=== PATIENT | male | born 1975 | race Two or more races ===

== ENCOUNTER 2024-01-17 08:57 | Outpatient (OUT) | payer BC, SELFPAY ==
--- NOTE | 2024-01-17 09:11 | ECG_ITS ---
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
--- NOTE | 2024-01-17 09:41 | PM.PRESUREVA ---
History of Present Illness History of Present Illness Chief complaint: inferior turbinate hypertrophy Narrative: Patient presents for preadmission testing. The patient reports a long history of sinus issues, particularly nasal congestion, the patient states he had a previous procedure on his nose to remove scar tissue. He states he has not had antibiotic treatment for bacterial sinusitis, but just struggles with congestion despite use of nasal sprays and decongestants. He denies epistaxis, fever, sore throat, headache, hearing loss, or any other complaints. Review of Systems ROS Narrative REVIEW OF SYSTEMS: Negative except as stated in HPI, ten or more systems reviewed. Constitutional: No fever, chills, weakness ENT: No sore throat or epistaxis Cardiovascular: No edema, chest pain, palpitations, or activity intolerance Respiratory: No shortness of breath, cough, or wheezing Musculoskeletal: No joint pain or swelling Gastrointestinal: No abdominal pain, constipation, diarrhea, or vomiting Genitourinary: No dysuria or hematuria Neurological: No numbness, tingling, weakness, or headache Psychiatric: No mood changes PFSH PFSH Medical History (Updated 01/17/24 @ 09:29 by Sophia Jain NP) Esophageal stricture ?K22.2 - Esophageal obstruction (ICD-10) Arthritis ?M19.90 - Unspecified osteoarthritis, unspecified site (ICD-10) GERD (gastroesophageal reflux disease) ?K21.9 - Gastro-esophageal reflux disease without esophagitis (ICD-10) Graves disease ?E05.00 - Thyrotoxicosis with diffuse goiter without thyrotoxic crisis or storm (ICD-10) Nasal turbinate hypertrophy ?J34.3 - Hypertrophy of nasal turbinates (ICD-10) History of esophageal dilatation ?Z98.890 - Other specified postprocedural states (ICD-10) Surgical History (Updated 01/17/24 @ 09:28 by Sophia Jain NP) H/O hand surgery ?Z98.890 - Other specified postprocedural states (ICD-10) History of nasal septoplasty ?Z98.890 - Other specified postprocedural states (ICD-10) Family History (Updated 01/17/24 @ 09:28 by Sophia Jain NP) Other Cancer Family history of diabetes mellitus Social History (Updated 01/17/24 @ 09:22 by Sophia Jain NP) Within the past year, how often did you have a drink containing alcohol: monthly or less Smoking status: Never smoker Non-prescribed substance use: denies use Previous occupational history: [employer] Highest level of school completed/degree received: high school graduate Meds Home Medications and Allergies Home Medications ?Medication ?Instructions ?Recorded ?Confirmed ?Type levothyroxine 50 mcg tablet 25 mcg PO BID 01/17/24 01/17/24 History omeprazole 40 mg capsule,delayed 40 mg PO DAILY PRN heartburn 01/17/24 01/17/24 History release thyroid (pork) 60 mg tablet ([employer] 60 mg PO BID 01/17/24 01/17/24 History Thyroid) Allergies Allergy/AdvReac Type Severity Reaction Status Date / Time No Known Drug Allergies Allergy Verified 01/17/24 09:20 Exam Narrative Exam Narrative: Constitutional: Awake, alert, comfortable, well-appearing, nontoxic, interactive, vital signs as charted Head: Normocephalic, atraumatic Eyes: Conjunctiva and lids normal to inspection, pupils normal ENT: Tympanic membranes pearly sandra, nonerythematous, noninjected, bilateral nasal turbinate hypertrophy, posterior oropharynx clear, oral mucosa moist Neck: Supple, normal appearance, normal range of motion, no meningeal signs, no lymphadenopathy Respiratory: No respiratory distress, breath sounds clear Cardiovascular: Regular rate and rhythm, strong and regular heart tones Musculoskeletal: Normal gait, no swelling or edema Skin: No rashes or induration, no lesions, only visible skin inspected Neuro: No neurological deficits, normal sensation Psychiatric: Oriented ?3, normal affect Assessment and Plan Assessment and Plan (1) Nasal turbinate hypertrophy: Plan Bilateral inferior turbinate submucosal resection scheduled with Dr. Jovel January 29, 2024.
[2024-01-17 09:57] LABS: Basophils Percent Auto 0.5 % (0.2-2.0); Eosinophils Absolute Auto 0.1 10^3/uL (0.0-0.7); Eosinophils Percent Auto 1.1 % (0.9-7.0); Hematocrit 44.4 % (42.0-54.0); Hemoglobin 14.7 g/dL (14.0-18.0); Immature Granulocytes Abs Auto 0.01 10^3/uL (0.00-0.03); Immature Granulocytes Pct Auto 0.2 % (0.0-0.5); Lymphocytes Absolute Auto 1.9 10^3/uL (1.2-3.8); Lymphocytes Percent Auto 30.6 % (20.5-60.0); Mean Corpuscular HGB Conc 33.1 g/dL (29.9-35.2); Mean Corpuscular Hemoglobin 30.8 pg (25.9-34.0); Mean Corpuscular Volume 93.1 fL (80.0-94.0); Mean Platelet Volume 9.7 fL (9.5-13.5); Monocytes Absolute Auto 0.7 10^3/uL (0.3-0.8); Monocytes Percent Auto 10.7 % (1.7-12.0); Neutrophils Absolute Auto 3.5 10^3/uL (1.4-6.5); Neutrophils Percent Auto 56.9 % (43.0-75.0); Platelet Count 236 10^3/uL (150-450); Red Blood Count 4.77 10^6/uL (4.70-6.10); Red Cell Distribution Width 12.7 % (11.0-15.0); White Blood Count 6.2 10^3/uL (4.0-11.0)
[2024-01-17 10:11] LABS: INR 1.01; Partial Thromboplastin Time 29.6 sec (22.3-36.2); Prothrombin Time 10.7 sec (9.0-11.6)
== END 2024-01-17 08:58 | disposition home or self-care (01) ==
LOC: PST 09:03
PROVIDERS: PCP Family Medicine; Visit Provider Otolaryngology
DX: Z01.810 Encounter for preprocedural cardiovascular examination (principal); Z01.812 Encounter for preprocedural laboratory examination; Z01.818 Encounter for other preprocedural examination; J34.3 Hypertrophy of nasal turbinates
CPT/HCPCS: 36415; 85025; 85610; 85730; 93005; G0463

== ENCOUNTER 2024-01-29 09:49 | Day surgery (SDC) | payer BC, SELFPAY ==
[2024-01-17 09:37] VITALS: BP 117/80; PULSE 72; TEMP 36.4; O2SAT 97; BMI 32.0
[2024-01-29] VITALS (12 sets, daily range): BP systolic 118–156; BP diastolic 68–107; PULSE 64–88; TEMP 36.1–36.3; O2SAT 91–98; BMI 32.2
--- OUTSIDE RECORDS SUMMARY | 2024-01-29 10:09 | XMS_ITS | CCD ---
Author Organization [facility] Care Team Providers Care Investigation Lieutenant Name Role Phone Pedro Elmore Unavailable Raquel Villa Unavailable Unavailable Raquel Villa Unavailable Unavailable WILBER CHAU C.N.P.-ER Unavailable Unava ilable Pedro Elmore Primary Care Provider [phone] Pedro Elmore DO Primary Care Provider Pedro Elmore DO Primary Care Provider [phone] Pedro ELMORE Primary Care Physician Pedro Elmore DO Primary Care Provider KATHRINE EVANGELISTA Attending Unavail able KATHRINE EVANGELISTA Admitting Unavail able KATHRINE EVANGELISTA Attending Unavail able KATHRINE EVANGELISTA Admitting Unavail able CHUCKIE LUI Attending Unavailab PEDRO Maravilla Primary Care Unavailable CHUCKIE LUI Admitting Unavailab CHUCKIE Ospina Referring Unavailab PATRICIA Oshea Attending Unavailable PEDRO ELMORE Primary Care Unavailable CHUCKIE LUI EDWARD Admitting Unavailab CHUCKIE Ospina EDWARD Referring Unavailab MARCI Carson Attending Unavailable PEDRO ELMORE Primary Care Unavailable PEDRO ELMORE Primary Care Unavailable RAQUEL VILLA Attending Unavailable PEDRO ELMORE Primary Care Unavailable RAQUEL VILLA Attending Unavailable William Crespo PA-C Unavailable DARRICK CRAWFORD Attending Unavailable YOSSI ALEXANDRE Attending Unavailable DARRICK CRAWFORD Referring Unavailable DARRICK CRAWFORD Attending Unavailable YOSSI ALEXANDRE Attending Unavailable SABRA RAND Attending Unavailable JUSTO MELCHOR Attending Unavailable DARRICK CRAWFORD Referring Unavailable Medications Current Medications Medication Drug Class(es) Dates Sig (Normalized) Sig (Original) eucalyptus-peppermi nt oil Soln (1 source) Start: 04-09-2023 End: 05-09-2023 take 4 drop(s) nasal route four times daily eucalyptus-pepperm int oil Soln Indications: Nasal dryness Instill 4 drops into each nostril 4 (four) times a day . 30 mL 3 04/09/2023 05/09/2023 Active methIMAzole 10 mg oral tablet (6 sources) Thyroid Hormone Synthesis Inhibitor Start: 04-05-2017 methIMAzole (TAPAZOLE) 10 MG tablet Take 1 tablet daily starting 4 days after I-131 treatment. 30 tablet 4 04/05/2017 Active Start: 11-29-2015 take 1 tablet by [facility] every eight hours methimazole 20 mg oral tablet = 1 tab(s), Oral, q8hr, # 270 tab(s), Refills(s) 0 Start Date: 11/29/15 Status: Ordered omeprazole 40 mg delayed release oral capsule (18 sources) Proton Pump Inhibitor Start: 11-15-2023 take 1 capsule by mouth once daily omeprazole (PRILOSEC) 40 MG capsule TAKE 1 CAPSULE BY MOUTH EVERY DAY 30 capsule 3 11/15/2023 Active Start: 03-12-2023 End: 11-15-2023 take 1 capsule by mouth once daily omeprazole (PRILOSEC) 40 MG capsule Take 1 (one) capsule (40 mg total) by mouth daily . 30 capsule 5 03/12/2023 11/15/2023 Discontinued Start: 10-21-2019 End: 01-06-2022 take 1 capsule by mouth once daily omeprazole (PRILOSEC) 40 MG capsule TAKE 1 CAPSULE BY MOUTH EVERY DAY 30 capsule 11 01/06/2022 Active Start: 04-23-2018 take 1 capsule by mo [facility] once daily omeprazole (PRILOSEC) 40 MG capsule Take 1 (one) capsule (40 mg total) by mouth daily . 30 capsule 11 04/23/2018 Active Start: 03-02-2017 take 1 capsule by mo [facility] once daily omeprazole (PRILOSEC) 40 MG capsule Take 40 mg by mouth daily. 3 03/02/2017 Active pantoprazole 40 mg extended release oral tablet (3 sources) Proton Pump Inhibitor Start: 09-02-2015 take 1 tablet by mouth twice daily pantoprazole 40 mg Oral EC Tab 40 mg = 1 tab(s), Oral, BID, # 60 tab(s), Refills(s) 2 Start Date: 09/02/15 Status: Ordered Start: 09-02-2015 take 1 tablet by ermelinda twice daily pantoprazole 40 mg Oral EC Tab 40 mg = 1 tab(s), Oral, BID, # 60 tab(s), Refills(s) 2 Start Date: 09/02/15 Status: Ordered raNITIdine 150 mg oral capsule (11 sources) Histamine-2 Receptor Antagonist Start: 10-21-2019 End: 01-10-2022 take 1 capsule by mouth twice daily ranitidine (ZANTAC) 150 MG capsule Take 1 (one) capsule (150 mg total) by mouth 2 (two) times a day . 180 capsule 3 10/21/2019 01/10/2022 Discontinued (Therapy completed) Start: 04-23-2018 End: 04-23-2019 take 1 capsule by mouth twice daily ranitidine (ZANTAC) 150 MG capsule Take 1 (one) capsule (150 mg total) by mouth 2 (two) times a day . 60 capsule 11 04/23/2018 04/23/2019 Active Start: 03-02-2017 End: 10-16-2017 take 2 tablets by mouth once ranitidine (ZANTAC) 150 M G tablet Take 300 mg by mouth nightly. 3 03/02/2017 10/16/2017 Discontinued thyroid ([facility]) 90 mg oral tablet (3 sources) Start: 03-05-2023 End: 03-04-2024 take 1 tablet by mouth once daily thyroid ([facility] Thyroid) 90 mg tablet Take 1 (one) tablet (90 mg total) by mouth daily . 30 tablet 11 03/05/2023 03/04/2024 Active levothyroxine sodium 0.15 mg oral tablet (15 sources) l-Thyroxi ne Start: 01-17-2023 End: 03-05-2023 take 1 tablet by mouth once daily, then take 0.5 tablet by mouth once levothyroxine (SYNTHROID, LEVOTHROID) 150 MCG tablet Indications: Hypothyroidism, unspecified type TAKE 1 TABLET BY MOUTH DAILY WITH AN EXTRA 1/2 TABLET EVERY SUNDAY 32 tablet 12 01/17/2023 03/05/2023 Discontinued Start: 10-21-2019 End: 01-17-2023 take 1 tablet by mouth once daily, then take 0.5 tablet by mouth once levothyroxine (SYNTHROID, LEVOTHROID) 150 MCG tablet Indications: Hypothyroidism, unspecified type TAKE 1 TABLET BY MOUTH DAILY WITH AN EXTRA 1/2 TABLET EVERY SUNDAY . 32 tablet 12 01/06/2022 01/17/2023 Discontinued Start: 12-20-2017 End: 10-11-2019 take 1 tablet by mouth once daily levothyroxine (SYNTHROID, LEVOTHROID) 150 MCG tablet Indications: Hypothyroidism, unspecified type Take 1 (one) tablet (150 mcg total) by mouth daily . 90 tablet 3 10/11/2018 10/11/2019 Active Start: 10-16-2017 End: 10-16-2018 take 1 tablet by mouth once daily levothyroxine (SYNTHROID, LEVOTHROID) 137 MCG tablet Indications: Postablative hypothyroidism Take 1 (one) tablet (137 mcg total) by mouth daily. 90 tablet 3 10/16/2017 10/16/2018 Active Start: 07-20-2017 End: 07-20-2018 take 1 tablet by mouth once daily levothyroxine (SYNTHROID, LEVOTHROID) 125 MCG tablet Take 1 (one) tablet (125 mcg total) by mouth daily. 30 tablet 11 07/20/2017 10/16/2017 Discontinued Completed/Discontinued Medications Medication Drug Class(es) Dates Sig (Normalized) Sig (Original) liothyronine sodium 0.005 mg oral tablet (1 source) l-Triiodothyroni ne Start: 04-23-2018 End: 10-11-2018 take 1 tablet by mouth once daily liothyronine (CYTOMEL) 5 MCG tablet Indications: Postablative hypothyroidism Take 1 (one) tablet (5 mcg total) by mouth daily . 30 tablet 11 04/23/2018 10/11/2018 Discontinued propranolol hydrochloride 10 mg oral tablet (5 sources) beta-Adrenergic Brody Start: 04-05-2017 End: 10-16-2017 propranolol (INDERAL) 10 MG tablet Take 1 tablet every 6-8 hrs prn palpitations. 30 tablet 0 04/05/2017 10/16/2017 Discontinued zolpidem tartrate 10 mg oral tablet (5 sources) gamma-Aminobutyr ic Acid-ergic Agonist End: 10-16-2017 take 1 tablet by mouth once as needed for sleep zolpidem (AMBIEN) 10 mg tablet Take 10 mg by mouth nightly as needed for sleep. 10/16/2017 Discontinued Problems Active Problems Problem Classification Problem Date Documented Date Episodic/Chronic Complications of surgical procedures or medical care (16 sources) Postablative hypothyroidism; Translations: [Postprocedural hypothyroidism] Onset: 07-20-2017 07-20-2017 Chronic Other ear and sense organ disorders (1 source) Sensorineural hearing loss, bilateral; Translations: [Sensorineural hearing loss, bilateral] 04-09-2023 Chronic Other ear and sense organ disorders (2 sources) Tinnitus, bilateral; Translations: [Tinnitus, bilateral] Onset: 03-05-2023 Episodic Other ear and sense organ disorders (2 sources) Tinnitus, unspecified ear; Translations: [Tinnitus, unspecified ear] Onset: 03-05-2023 Episodic Other upper respiratory disease (3 sources) Hypertrophy of nasal turbinates 12-01-2013 Episodic Other upper respiratory disease (2 sources) Other specified disorders of nose and nasal sinuses; Translations: [Other specified disorders of nose and nasal sinuses] Onset: 04-09-2023 Episodic Other upper respiratory disease (2 sources) Nasal congestion; Translations: [Nasal congestion] Onset: 04-09-2023 Episodic Thyroid disorders (20 sources) Graves' disease; Translations: [Postablative hypothyroidism] Onset: 04-29-2017 04-29-2017 Chronic Past or Other Problems Problem Classification Problem Date Documented Da te Episodic/Chronic Other ear and sense organ disorders (4 sources) Tinnitus; Translations: [Tinnitus, unspecified ear] Onset: 03-05-2023 03-05-2023 Episodic Results Test Name Value Interpretation Reference Range Facility Consultation Noteon 03-05-20 Consultation Note [id number]#1.00C D:127 Normal [facility] CHEMISTRYOrdered By: Tere Gray on 02-27-2023 Free T4 [Mass/Vol] 1.08 ng/dL Normal 0.58 - 1. 64 ng/dL FT Remisol TSH Qn 3.29 m[IU]/L Normal 0.34 - 5.60 mcIU/mL [facility] Remisol Consent for Treatmenton 02-03 Consent for Treatment [id number]#1.00C D:127 Normal [facility] Free T4on 02-27-2023 Free T4 [Mass/Vol] 1.08 ng/dL Normal 0.58-1.64 [facility] Comment on above: Performed By: #### 2 [id number] #### [facility] [address] [place] [address] Physician Orderon 02-27-2023 Physician Order [id number]#1.00C D:127 Normal [facility] TSHon 02-27-2023 TSH Qn 3.29 m[IU]/L Normal 0.34-5.60 [facility] Comment on above: Performed By: #### 2 [id number], [id number] #### [facility] [address] [place] [address] In office Testingon 08-18-19 23 In office Testing [id number]#1.00C D:127 Normal [facility] Coding Summary.on 06-14-2022 Coding Summary. CD:[id number] Gh0 bWw+PGhlYWQ+JF9DBOPmV25 dzXGohT4AA6wELU8BOXIUZZ WSMR8CEP2udDZ4JGwqY7Usj iAv CzaqwITwSB91LIy8VYB3wRq yHVhpgX6haVFeO9w5DiXzVS 37oQ55KDyaBORpBkG7QeRbx jsgbWFy I5bfJdMtbEJtRyy+PHRhYmx lIHdpZHRoPScxMDAlJyBzdH faGE7fVc5vBHQbQGWekCdhe HNlOiBj k2pvWKUjLYzmAX8wnZipR1H ymGR3VEQqk4k8Rz56kCL+PH WnUJX7kZuuBVxyg969RlVky 3myKFL9 iGPbZZtqQBM1Z98qy1G2GXE gRPUoESI4hBA9gV6tkFiajf jjY5MfbXOnUcD3BEE5jEXvr E8nbVvv brmzxW9wDks+A02NJV9MMKN TSH4GYnv6Q5PzRxuuhUF+PC 18USQmAR83hSHsmZIut4dcm Ff4ToFt DTReYBY2oYjfQLrgl8EzAKZ qL97tlQGvd4N1NYFdsNfriW DbVwDscUH8fG6oLPfocnlnq 2hvdzsn Ddvlm6ucoi20tB14F34lJFu xHRUsFSL7MZHwFIEjpWjrck 5kzI4oYc6+LIftn8pnz9srp Rs5EdEy KSUuvyHuxDllGED6a2PfOo8 1P4KjqRggs1UpPeu2li21aX Uxy9M6dVQ2XEhzPRNchT5vK WxlZnQ6 PDLmWfTiuY26qFInXFftBl8 uvFbbmEauAY0eEATymhekAY UkjM9jDFHxeIXiyBgxJA5kA TBpbjtm t805MuQsIST5BUHetOZnE7E ogZ1jHvAvDBHeXSRrK8JtzY JeIRejZ069INucIrR3TGJkj kGdG7Nu AXSgvFqfCwK3z7Y0Xb6Ob1F qmideAMZ8SSzfANGaEeXjPy UzJiF1Y8DiMur6SCWnbKenF P6vK2Jc BNCoucsstwmigBH9OQUkHSP vbV51zABhUAcnQa9lv9W9q9 46VRMuPWFwwR85Dx8cqLdaS TBwdCBU rL6mtdqsf7folxfqGqOjRXD lCCi3FIs2QFAkeQhrBxJzRW M3XwE7SEH4zVFapW5jlIozz nvmbD9f Oyc+Z62qrX1fWXG6ZPJ2mvh pDVAujvPoPO23DM78X3VlCh wvdGFibGU+PGRpdiBzdHlsZ M5yNwAm x7xvd4PmEUbrV0QqASTyCSo dDgm8ROHoAEN3eKH6zY8xVT ZzVSafe6L7lVQ7B9WsktVdm n2ql0eb HOLxUUqeG69erUQec0W5JFN ssGM2LIYeiOntArWpyF54Vq c+PJLwbHsdt4FpKvfjr9znd 0ysyQr5 CxYsCKIjcoDdsUdmLYX2g1O yPs24P34gBVjcYUTlJEVqJN HyPXIqoRnsai2jiV0lPt9+P GNvbCB3 zFY1wL0dFJCxGiA7EVcqU25 2TgDrmXJcUqlrs6iwh4fowB k2EfGsLLRygyHwnHymYGE1m 2OcEt54 J77eUOunWGNrSQIvJEVvIIN cqIahsw0deL9xJa6+PC9jb2 wyqp71dV61bFZ+ZRAkECF2w WxlPSdw HDZchC5hNQpxMcA7YVTzGvY xpN07oBIeNEugKh8slEezgK jpWV3kTSVtssfwi869UoLzd 2xkIDEw tHAqUUylEHR0F33st9C7BIE sLWTpLLL8lIX3wM4tnUskfq ogbGVmdDsgdmVydGljYWwtY RwdL424 IHRvcDsnPlBhdGllbnQgTmF rFQg3Q1IrFyu5QVIrxNnhZW 8czIKsLWfkZx1etOsfbSwlL V8eCCDf mskey472TlQfh9glQGJzyWS rSIekKIU8U44br8X5XEFwNH BbNHO9eVI3sN1pbGzzxwwax GVmdDsg laTcjAbuNKufBAblD638SKW yhRtsSoKylhIaAOBupBS6EB 24EQ97tMQpx2R2yAD4K2XnL GRpbmct pwpyjLM0RQKbHWNypP61Ea6 clSziRm1hKDHvSPS3GQWnpA BzF3DztS9kJbPgOHBzXRHuP 3RleHQt VDohX927PMgrKkM2VLJrswZ mM7OfCGEinHsfEqT7z8P1Ix 6RB5U5AY32XP00zVWkq9G6l TQ6T7Zc AFKpopwwiewkjZL2JCIzOXK jkD53Bm8mnBakEy5jOCKfPM U3AYJsgDFbL8KoyY0eVzZfP DAwMDAw S4XmuPSvMNzuD882EYolOxY 4OMTfvvPoY9BpLGIruDluEj Q6j7D6Th3HAKa0VX23CZ11a ZSsy4R4 gES7T5IvYRQssqsqnlxthYW 4EDZyBYIreA07Xg6zyXqeKp 4uCGBwYDD1QEWhvBHaJ7Tgx I6aTbMh POLgHENuI4YkgSZfFPuhQ52 3SVnpVmX0CAUbtsYjD5QrBG WloKqbNmW4g7B3Sa7ZOKCoW M41LPF5 uZJ0RG92VF87J3EfQfxdlSL ibGU+PHRhYmxlIHdpZHRoPS waZLCoNyOprScqNO7sZh5wL GVyLWNv pKyxdAEgDtBjg1ynRPExRDj vLD9qyCxqB8UvqFB4UCHvc8 i7Rr85E21lD4BreHX+PGNvb GS3uBO1 qB1cUeBkJwX7ASdvJ085BsI keSQcSrruz8yor2pxzTt8Xb A7RIUvxtDwjEjrEIE4p2XzH d65J76k IHdpZHRoPSIxNSUiIHZhbGl qlm1gtZ1fCr7+MQHbiHL2pU Y4xJ2vVuJeElE4ROrbC002R nRvcCIv Lxvcd6xvz0wulTb3PkLlLPZ rskNtiKljUYQ4t6GmFl12H9 NocAqzi9LxHvh2jv55rLKiy 0V2qZB6 I0TsCVBrloczcKZdqJymJF3 sEWZmupnuBDTtyO0jDZSmB6 g1SdHrMyM7VOkgK8KswjY2C DEwcHQg RZwwSJO0V13gp1P1BMIaHWM wXBP3oKI0cI4qyTpdfjhekU VmdDsgdmVydGljYWwtYWxpZ 246IHRv qBjpDZYxdK0cBWQtiEBfiFm lRO6zJSQoszlbMduQDskQHv ijKPqPJDhTLVZ1X4QtXvk0C CBzdHls YU0ipBPrCCslSw3joYprgPl pRE9hNTVnfwqlZHYytI5mMQ FucVKeyUlzAY9qAEEriypqw 250OiAx EOO1KHMdzVJiQ9UkmJ2cMkL kITOwDWPcU8XptWLiZZrrW0 76SKbvIdH5ORCfnsUoE5IiU WFsaWdu NcF7c1M1Cb1bJB5zWc4gQFx 3BH97AN43wXJei4F7jOG8U3 BtZLVfkkxtjuvuoEE1PRBmE DUwaW47 aPLiAJoqLn7dh6X1r994QDJ gLWDwwB04Yj0jfWmfEJLyaT FCpG6pqakqi3fazgzrUoWeB DAwMDt0 YNg7SCFasUlvSbCvBNB9HcB 4YDF3wAZriA6vhUiemoajvV 9wOyc+QZAfGUPwtsV8A1CkB ey8PORs oDetAV8obIHgKRecGb6pcCa eoSxoYV2dBLImnygjRMUhpV 6nYQBfaPFkoPhwTZ5aMYHyj cybg708 LdXsHAF9LIIncSYyU9CxhG1 zUkFxVWFxMJEoO8DvgQBpBG eyF813HHgqQyM7IQMptsTaF 2FsLWFs oLvvQxL2e1K7Dq1JHOmxKS0 0XP65aJLpq7W5sJO2T0BwOX TxqcktsylzqAZ6SYSdJBXtp H72mXXv PUmmSo5gv6C2w515IVSmFRN jsQ81Lj4zaRcnEAOnpWHCvA 2lrhjti5omuaofDbKcUCEcO Tj6DYe0 MKVrmNthIgAfZSR2GtS9LQQ 8nHIvmK0drQyytjhdmY4uFm c+X2J7qME7jGVrpWmpyYL+P J75py33 M0SeEpypPln0ZAFgXOL0vLE 9cN6oODRxHUdrc0W8fIM1M3 EszuPojy8tz5kfGTPkLVnoB 29sbGFw v8X2QOGkmYC4LQLalCkeYwH ujD68Jlk+WSBduWgyb2IdAg yvw0mol4dkpVv6ArVaJUPfs mFsaWdu JGZ6f7NbLq40F58aKKglQLN hNVLpQJGgKNTaeDjsxr9vrY 9wIi8+FMQmpKL3kPW1wL4tJ jAlIiB2 POkeL315BdMmaHPpHxcfx4b yh1owzKo2PbUaCUPricMwfZ jyBKF6a3HgSx24W9MzbAqhx 0TyDql1 zh58oNPyn2K9yBD2H1VzPLH lidgxyPZbzCxpEP8kCRMmdg ckCMCqfE4mSTBmW0e3VcGdN oP0JJka B8ZqavS0BCJtnHYzUHQkmZX LoK2jnscrs2qmvzcpGjZlGC NnVSa4IOt2UCSdyLstUtFxN BQ8GsZ9 FGT2xVMjwH1ueDspzifoaO6 wOyc+UXz9s6mueSVhTN5jqL L2KO74YQ59pWDdo2H1mKC9U 3BhZGRp znrsaopdxQB6MQKaAQUkrY4 0Il3zwOnhWr7lKZYwMZI7VW YffQQeW9DzfB9gYjHtINQcL SYeR6Mm wTIfKWjyQ689BQrdHzH2NII ejiXsU6UyUNMhnHhhMdK0g2 U8Ml5NAR40CW65YB56wNSze 7V8mSU5 F5RiDXMsoaedghfjfWI4NNI bXPQnuC31Rc1woUciIa3vBQ AyDZW3ZCLzvAEiI2IasF8pH iAjMDAw YWDaM2YnfYUxQMywK029MRv yLgD3UCZbhfCpD0YrFGQblP boJrC5n6M8Pv1LHh62ZN71W D86rQBl a1P5bAL9C9EcSZDnszkunqb qxJD7CFUpGRRsgI10Pe1fjU ztGt6rXXEfSJE7JGSsoYZlH 6CilR0w LwYnJCNwOEAtV9BdsRWaDAc kZ797YLezLwZ9DOJstkHbM7 OkHXLepNbnIcI5x4G9Uz7OV Xllcjo8 W9JzDbhcaUX+TL67VQGePC3 1hNWhgLBuc1ulcQi2WqRvUG JcNXI5nEcnXWlmm5UpODOwY 29sbGFw c2U6 (more content not included)... Normal [facility] CHEMISTRYOrdered By: SYSTEM SYSTEM on 06-12-2022 Free T4 [Mass/Vol] 1.05 ng/dL Normal 0.58 - 1. 64 ng/dL [facility] Remisol TSH Qn 4.19 m[IU]/L Normal 0.34 - 5.60 mcIU/mL [facility] Remisol Consent for Treatmenton Consent for Treatment [id number]#1.00C D:127 Normal [facility] Free T4on 06-12-2022 Free T4 [Mass/Vol] 1.05 ng/dL Normal 0.58-1.64 [facility] Comment on above: Performed By: #### 2 [id number] #### [facility] [address] [place] [address] Physician Orderon 06-12-2022 Physician Order [id number]#1.00 CD:127 Normal [facility] TSHon 06-12-2022 TSH Qn 4.19 m[IU]/L Normal 0.34-5.60 [facility] Comment on above: Performed By: #### 2 [id number] #### [facility] [address] [place] [address] RADIOPHARM THERAPY ORAL ADMI Non 05-07-2017 RADIOPHARM THERAPY ORAL ADMIN Final ReportAccession No: [id number] Performed: May 07 2017 8:38AMExamination: RADIOPHARM THERAPY ORAL ADMINI-131 RADIOPHARMACEUTICAL ADMINISTRATION FOR TREATMENT OF GRAVES' DISEASE.TECHNIQUE: The patient?s previous radioactive iodine uptakedetermination has been reviewed. The patient has been diagnosed withhyperthyroidism and reports two prior treatments with radioiodine at [facility]. The patient was interviewed and states theinformation provided concerning the at home treatment with radioactiveiodine has been read. Any questions that the patient had were answeredprior to the administration of the radiopharmaceutical. The patient?sidentification was confirmed by name and birthdate on the wrist band.The patient then orally ingested 29mCi I-131 sodium iodide.IMPRESSION: Status post I-131 radioactive iodine administration for thetreatment of Graves' disease.I recommend follow-up physician consultation within 4-6 weeks.Interpreting Physician: CHU BOLANOS M.D.Trans: : cc: Normal [facility] HISTORY PRESENT ILLNESSon 11 -25-2017 HISTORY PRESENT ILLNESS Name: PAYTON GALVEZ : 1975 Unit #: [id number] Age: 42 Family Physician: Pt Location: ER Arrival Date 04/28/171854 ER Physician: WILBER CHAU C.N.P.-ER [facility] EMERGENCY ROOM History of Present Illness General Time Patient Was Seen: 19:10 Brought By: Significant Other Mode of Arrival: Ambulatory Nursing Notes/Assessmemts: Reviewed Source: Patient, Family - Exam Limitations: No limitations History of Present Illness Stated Complaint: back pain Initial Comments Patient presents to emergency room with complaints of back pain since this morning. Patient was putting on his belt this morning, twisted and felt a pull. Patient did a lot of yard work today including leaf pickup, moving of furniture indoors for winter. Patient complaints of intermittent toe tingling. Patient denies any bowel or bladder dysfunction. He took Advil for pain without relief. Patient has no past history of back problems. Patient denies any fall, trauma or injury otherwise. He denies any fever. Patient denies any IV drug use or any reason to be immunocompromised. Pain worsening throughout the day. Patient [facility], planning to drive back to home ([place], [place]) with this evening. Onset/Duration: 6 to 12 Hours Quality/Severity: Continuous, Pain Back Pain Location: Lumbar Spine, Paraspinous Muscles Pain Level: 6 Back Pain Radiation: Denies Radiation Method of Injury/Prior Injury: Lifting, Twisted Modifying Factors: Improves with: Nothing, Worsens with: Movement, No Change with: Analgesics - advil Associated Symptoms: Lower back pain, Muscle spasms, Tingling in legs/feet - intermittent toes bilaterally Past Medical History Past Medical History Other Pertinent History: thyroid problem and graves disease, afib Social History Marital Status M Allergies Allergies: Coded Allergies: No Known Drug Allergies (Verified Allergy, Unknown, 04/28/17) Home Medications Home Medications See Reconcile Meds Review of Systems Constitutional: Denies: Chills, Diaphoresis, Fever, Fatigue Skin: Denies: Change in color, Dryness, Rash Respiratory: Denies: Cough, Dyspnea, Productive sputum, Shortness of breath Cardiovascular: Denies: Chest pain, Dyspnea, Lightheadedness Gastrointestinal: Denies: Abdominal pain, Constipation, Diarrhea, Difficulty swallowing, Nausea, Poor appetite, Poor fluid intake, Vomiting : Other - bowel or bladder dysfunction , Denies: Burning, Dysuria, Pain Musculoskeletal: See HPI, Back pain, Muscle pain, Muscle stiffness, Denies: Joint swelling, Neck pain Neurological: See HPI, Difficulty walking - painful, Tingling - intermittent toes, Denies: Confusion, Headache, Numbness, Other - Saddle anesthesia All Other Systems: Reviewed and Negative Physical Exam Physical Exam Vital Signs Vital Signs Date Time Temp Pulse Resp B/P (MAP) Pulse Ox O2 Delivery O2 Flow Rate FiO2 04/28/17 20:36 16 04/28/17 19:53 18 04/28/17 19:38 96.7 100 20 153/76 (101) 98 Room Air General Appearance: Mild distress - Standing, appears uncomfortable Neck: Normal Inspection, Full range of motion, Trachea Midline Respiratory: Normal inspection, Easy effort Back: Normal inspection, No CVA tenderness, No vertebral tenderness, Decreased range of motion, Other - Diffuse low back pain, no worsening with palpation, muscles are tense. Back is diaphoretic. Pain worsens with any movement. Musculoskeletal: Normal inspection, Normal capillary refill, Normal Gait Neurologic/Psychiatric: Alert, Oriented x3, Normal mood/affect, Intact touch sensation, Intact language/cognition Skin: Normal color, No rash, Diaphoresis - Back Course of Treatment Progress Progress: Condition improved w/meds, Patient re-examined Progress Comments Patient improved after medications. Patient to follow up with primary care provider. I do not feel an x-ray is warranted at this time as there was no actual trauma. I feel patient strained his low back. Patient was educated on supportive care and proper follow up. He verbalized understanding. Patient and updated educated on plan of care, home instruction, followup care and when to return to ED for worsening of symptoms. Questions answered. Standard warnings given. Medications OARRS: Requested Reviewed Medical Decision Making Discussed with: Patient, Family - Information discussed: Patient Condition, Disposition of Patient, Follow-up w/ physician Departure Departure Disposition: Home Diagnosis (NO ABBREVIATIONS) Lumbar Strain, Acute Condition: Improved Patient Instructions: Low Back Strain (ED), Lower Back Exercises (ED) Additional Instructions: Follow up with your family provider on arrival home, Rest, Range of motion exercises, Ice, Heat, Medications as prescribed. Return to ED for worsening of symptoms. Blood Pressure Elevated: Yes Home Medications: Reviewed, New Medications Added Scripts Prednisone (Prednisone) 20 Mg Tablet 20 MG PO BID, #10 TAB Prov: WILBER CHAU.N.P.-ER 04/28/17 Hydrocodone - Acetaminophen 5-325MG ([place] 5-325 Tablet) 5-325 Mg Tab 1-2 TAB PO Q4-6 PRN, #14 TAB Prov: WILBER CHAUNAdrienP.-ER 04/28/17 Cyclobenzaprine Hcl (Cyclobenzaprine Hcl) 5 Mg Tablet 5-10 MG PO Q8H Y for SPASMS - MUSCLE, #20 TAB Prov: WILBER CHAUN.P.-ER 04/28/17 Ibuprofen (Ibuprofen) 800 Mg Tab 800 MG PO Q8H PRN PAIN for PAIN, #30 TAB Prov: WILBER CHAUN.PAdrien-ER 04/28/17 WILBER CHAUNAdrienPAdrien-ER Apr 28, 2017 20:57 Electronically Signed by: WILBER CHAUNAdrienPAdrien 04/28/17 [id number] WILBER CHAUN.P. [id number] cc: Normal [facility] NUCLEAR REPORTon 04-17-2017 NUCLEAR REPORT Ordered by an unspecified provider. Invalid Interpretation Code [facility] Work Phone: Vital Signs Date Time Vital Sign Value Performing Clinician Faci lity 03-05-2023 07:53-0400 Body mass index (BMI) [Ratio] 33.43 kg/m2 Chuckie Lui [employer] Work Phone: [facility] 03-05-2023 07:53-0400 Body weight 105.69 kg Chuckie Lui CNP Work Phone: [facility] 03-05-2023 07:53-0400 Diastolic blood pressure 83 mm[Hg] Chuckie Lui [employer] Work Phone: [facility] 03-05-2023 07:53-0400 Heart rate 72 /min Chuckie Lui [employer] Work Phone: [facility] 03-05-2023 07:53-0400 Systolic blood pressure 136 mm[Hg] Chuckieel Lui [employer] Work Phone: [facility] 01-10-2022 08:04-0400 Body height 177.8 cm Kathrine Tonja PA-C Work Phone: [facility] 01-10-2022 08:04-0400 Body mass index (BMI) [Ratio] 33.29 kg/m2 Kathrine Tonja PA-C Work Phone: [facility] 01-10-2022 08:04-0400 Body weight 105.23 kg Kathrine Tonja PA-C Work Phone: [facility] 01-10-2022 08:04-0400 Diastolic blood pressure 84 mm[Hg] Kathrine Tonja PA-C Work Phone: [facility] 01-10-2022 08:04-0400 Heart rate 64 /min Kathrine Tonja PA-C Work Phone: [facility] 01-10-2022 08:04-0400 Systolic blood pressure 131 mm[Hg] Kathrine Tonja PA-C Work Phone: [facility] 12-17-2020 09:38-0400 Body height 177.8 cm William Jordanmann PA-C Work Phone: [facility] 12-17-2020 09:38-0400 Body mass index (BMI) [Ratio] 32.28 kg/m2 William Kleinmann PA-C Work Phone: [facility] 12-17-2020 09:38-0400 Body weight 102.06 kg William Kleinmann PA-C Work Phone: [facility] 12-17-2020 09:38-0400 Diastolic blood pressure 74 mm[Hg] William Jordanmann PA-C Work Phone: [facility] 12-17-2020 09:38-0400 Heart rate 61 /min William Crespo PA-C Work Phone: [facility] 12-17-2020 09:38-0400 Systolic blood pressure 117 mm[Hg] William Crespo PA-C Work Phone: [facility] 10-11-2018 10:03-0400 BMI (Body Mass Index) 32.82 kg/m2 Raquel Villa [facility] 10-11-2018 10:03-0400 BP Diastolic 79 mm[Hg] Raquel Villa [facility] 10-11-2018 10:03-0400 BP Systolic 120 mm[Hg] Raquel Villa [facility] 10-11-2018 10:03-0400 Height 179.1 cm Raquel Villa [facility] 10-11-2018 10:03-0400 Pulse (Heart Rate) 65 /min Raquel Villa [facility] 10-11-2018 10:03-0400 Weight 105.23 kg Raquel Villa [facility] 10-16-2017 07:53-0400 BMI (Body Mass Index) 31.69 kg/m2 Chuckie Lui [facility] 10-16-2017 07:53-0400 BP Diastolic 78 mm[Hg] Chuckie Lui [facility] 10-16-2017 07:53-0400 BP Systolic 110 mm[Hg] Chuckie Lui [facility] 10-16-2017 07:53-0400 Height 179.1 cm Chuckie Lui [facility] 10-16-2017 07:53-0400 Pulse (Heart Rate) 64 /min Chuckie Lui [facility] 10-16-2017 07:53-0400 Weight 101.61 kg Chuckie Lui [facility] 07-20-2017 14:37-0500 BMI (Body Mass Index) 33.81 kg/m2 Chuckie Lui [facility] Work Phone: 07-20-2017 14:37-0500 BP Diastolic 94 mm[Hg] Chuckie Lui [facility] Work Phone: 07-20-2017 14:37-0500 BP Systolic 136 mm[Hg] Chuckie Lui [facility] Work Phone: 07-20-2017 14:37-0500 Height 179.1 cm Chuckie Lui [facility] Work Phone: 07-20-2017 14:37-0500 Pulse (Heart Rate) 64 /min Chuckie Lui [facility] Work Phone: 07-20-2017 14:37-0500 Weight 108.41 kg Chuckie Lui [facility] Work Phone: 04-05-2017 13:50-0400 BMI (Body Mass Index) 31.83 kg/m2 Raquel Villa [facility] Work Phone: 04-05-2017 13:50-0400 BP Diastolic 78 mm[Hg] Raquel Villa [facility] Work Phone: 04-05-2017 13:50-0400 BP Systolic 132 mm[Hg] Raquel Villa [facility] Work Phone: 04-05-2017 13:50-0400 Height 179.1 cm Raquel Villa [facility] Work Phone: 04-05-2017 13:50-0400 Pulse (Heart Rate) 72 /min Raquel Villa [facility] Work Phone: 04-05-2017 13:50-0400 Weight 102.06 kg Raquel Villa [facility] Work Phone: Encounters Encounter Date Encounter Type Care Provider Facility Start: 01-16-2024 End: 01-16-2024 ambulatory JUSTO BERTRAND V Not Available Start: 01-01-2024 End: 01-01-2024 ambulatory SABRA RAND Not Available Start: 12-19-2023 End: 12-19-2023 ambulatory YOSSI H TIMMIS Not Available Start: 11-28-2023 End: 11-28-2023 ambulatory DARRICK CRAWFORD Not Available Start: 11-15-2023 Refill Chuckie Lui [facility] Work Phone: [facility] Start: 11-07-2023 End: 11-07-2023 ambulatory YOSSI H TIMMIS Not Available Start: 10-09-2023 End: 10-09-2023 ambulatory DARRICK CRAWFORD Not Available Start: 04-09-2023 End: 04-09-2023 ambulatory CHUCKIE LUI [facility] Ambulatory Start: 04-09-2023 End: 04-09-2023 ambulatory CHUCKIE LUI [facility] Ambulatory Start: 04-09-2023 End: 04-09-2023 Clinical Support Chuckie Lui [employer] Work Phone: [facility] Comment on above: Sensorineural hearin g loss, bilateral (Primary Dx) Start: 03-05-2023 End: 03-05-[address] [facility] Ambulatory Start: 03-05-2023 End: 03-05-2023 Office outpatient visit 15 minutes Chuckie Lui [employer] Work Phone: [facility] [place] Comment on above: Postablative hypothy roidism (Primary Dx); Tinnitus, unspecified laterality Start: 03-02-2023 ambulatory PEDRO ELMORE [facility] Ambulatory Start: 02-27-2023 End: 02-28-2023 ambulatory KATHRINE EVANGELISTA Facility:[facility] Start: 02-27-2023 End: 02-27-2023 Patient encounter procedure KATHRINE EVANGELISTA [facility] Start: 01-17-2023 Jeffrey Crespo PA-C Work Phone: [facility] Comment on above: Hypothyroidism, unsp ecified type Start: 06-13-2022 ambulatory PEDRO ELMORE [facility] Ambulatory Start: 06-12-2022 End: 06-13-2022 ambulatory KATHRINE EVANGELISTA Facility:[facility] Start: 06-12-2022 End: 06-12-2022 Patient encounter procedure KATHRINE EVANGELISTA [facility] Start: 01-10-2022 End: 01-10-2022 Office outpatient visit 15 minutes Kathrine Evangelista PA-C Work Phone: [facility] Comment on above: Postablative hypothy roidism (Primary Dx); Hypothyroidism, unspecified type Start: 01-06-2022 Refill William Crespo PA-C Work Phone: [facility] Comment on above: Hypothyroidism, unsp ecified type Start: 12-26-2021 End: 12-26-2021 Patient encounter procedure WILLIAM CRESPO [facility] Start: 12-16-2021 Orders Only William Crespo PA-C Work Phone: [facility] Comment on above: Hypothyroidism, unsp ecified type (Primary Dx) Start: 12-17-2020 End: 12-17-2020 Office outpatient visit 15 minutes William Crespo PA-C Work Phone: [facility] Comment on above: Postablative hypothy roidism (Primary Dx); Hypothyroidism, unspecified type Start: 10-20-2020 End: 10-20-2020 Orders Only Chuckie Lui [employer] Work Phone: [facility] Comment on above: Postablative hypothy roidism (Primary Dx) Start: 10-11-2018 End: 10-11-2018 Office outpatient visit 15 minutes Raquel Villa Work Phone: [facility] Comment on above: Hypothyroidism, unsp ecified type Start: 10-16-2017 End: 10-16-2017 Office/outpatient visit, est, level 3 Chuckie Lui Work Phone: [facility] Start: 07-20-2017 Office/outpatient vi sit, est, level 3 Chuckie Lui Work Phone: [facility] Start: 05-07-2017 Amb[facility] Start: 05-07-2017 End: 05-07-2017 Ambulatory Raquel Villa Work Phone: [facility] Start: 04-28-2017 End: 04-28-2017 Emergency department patient visit WILBER Anderson C.N.P.-ER SECORY Facility:[facility] Start: 04-25-2017 Ambulatory Beverly Chandler [facility] Start: 04-05-2017 Office outpatient ne w 30 minutes Raquel Kassy Villa Work Phone: [facility] Procedures Date Procedure Procedure Detail Performing Clinician Start: 09-03-2015 Esophagogastroduodenoscopy WILLIAM POSEY Start: 12-18-2013 bilateral inf turbinate resection, SMR WILLIAM CRESPO Removal of foreign body from hand WILLIAM CRESPO Comment on above: LEFT HAND- SHOTGUN FRAGMENT SINUS SURGERY WILLIAM CONROY Plan of Treatment Date Care Activity Detail Author Start: 04-14-2024 End: 04-14-2024 Patient encounter procedure [facility] [place] Start: 02-03-2024 Influenza vaccination Influenza Vaccine (Season Ended) [facility] Start: 09-17-2023 End: 09-17-2023 Patient encounter procedure 09/17/2023 8:00 AM EDT Office Visit [facility] [place] [address] [place] [address] Chuckie Lui, [employer] [address] [place] [address] [facility] [place] Start: 05-04-2023 End: 03-05-2024 Thyrotropin [Units/volume] in Serum or Plasma TSH Lab Routine Postablative hypothyroidism Expected: 05/04/2023, Expires: 03/05/2024 [facility] Comment on above: Expected: 05/04/2023, Expires: Start: 05-04-2023 End: 03-05-2024 Thyroxine (T4) free [Mass/volume] in Serum or Plasma T4, Free Lab Routine Postablative hypothyroidism Expected: 05/04/2023, Expires: 03/05/2024 [facility] Work Phone: Comment on above: Expected: 05/04/2023, Expires: Start: 05-04-2023 End: 03-05-2024 Triiodothyronine (T3) [Mass/volume] in Serum or Plasma T3 Lab Routine Postablative hypothyroidism Expected: 05/04/2023, Expires: 03/05/2024 [facility] Comment on above: Expected: 05/04/2023, Expires: Start: 03-05-2023 End: 03-05-2023 Patient encounter procedure 03/05/2023 8:00 AM EDT Office Visit [facility] [place] [address] [place] [address] Chuckie Lui, CINTHYA [address] [place] [address] [facility] [place] Start: 02-02-2023 COVID-19 Vaccine ( season) COVID-19 Vaccine ( season) [facility] Start: 02-02-2023 Influenza vaccination Sequential Influenza Vaccine (#1) [facility] Start: 01-09-2023 End: 01-09-2023 Patient encounter procedure 01/09/2023 Office Visit Endocrinology Chuckie Lui, CINTHYA [address] [place] [address] [facility] Start: 01-02-2023 End: 01-10-2023 Thyrotropin [Units/volume] in Serum or Plasma TSH Lab Routine Postablative hypothyroidism Expected: 01/02/2023 (Approximate), Expires: 01/10/2023 [facility] Comment on above: Expected: 01/02/2023 (Approximate), Expi res: 01/10/2023 Start: 01-02-2023 End: 01-10-2023 Thyroxine (T4) free [Mass/volume] in Serum or Plasma T4, Free Lab Routine Postablative hypothyroidism Expected: 01/02/2023 (Approximate), Expires: 01/10/2023 [facility] Work Phone: Comment on above: Expected: 01/02/2023 (Approximate), Expi res: 01/10/2023 Start: 06-05-2022 End: 01-10-2023 Thyrotropin [Units/volume] in Serum or Plasma TSH Lab Routine Postablative hypothyroidism Expected: 06/05/2022 (Approximate), Expires: 01/10/2023 [facility] Comment on above: Expected: 06/05/2022 (Approximate), Expi res: 01/10/2023 Start: 06-05-2022 End: 01-10-2023 Thyroxine (T4) free [Mass/volume] in Serum or Plasma T4, Free Lab Routine Postablative hypothyroidism Expected: 06/05/2022 (Approximate), Expires: 01/10/2023 [facility] Comment on above: Expected: 06/05/2022 (Approximate), Expi res: 01/10/2023 Start: 02-02-2022 Influenza vaccination Sequential Influenza Vaccine (#1) [facility] Start: 01-10-2022 End: 01-10-2022 Patient encounter procedure 01/10/2022 Office Visit Endocrinology Kathrine Evangelista PA-C [address] [place] [address] [facility] Start: 12-19-2021 End: 12-19-2021 Patient encounter procedure 12/19/2021 Office Visit Endocrinology Marti Randle, CINTHYA [address] [place] [address] [phone] [facility] Start: 02-02-2021 Influenza vaccination [facility] Start: 12-24-2019 History and physical examination, annual for health maintenance Wellness Visit [facility] Start: 10-13-2019 End: 10-13-2019 Office Visit 10/13/2019 Office Visit Endocrinology Marti Randle, [employer] [address] [facility] [place] [address] [address] [phone] [facility] Start: 02-02-2019 Influenza vaccination given SEQUENTIAL INFLUENZA VACCINE (Season Ended) [facility] Start: 04-23-2018 End: 04-23-2018 Ambulatory 04/23/2018 Office Visit Endocrinology Chuckie Lui CNP [address] [facility] [address] [place] [address] [phone] [facility] Start: 02-02-2018 Influenza vaccination SEQUENTIAL INFLUENZA VACCINE (Season Ended) [facility] Start: 10-16-2017 Ambulatory 10/16/2017 Office Visit Endocrinology Chuckie Lui CNP [address] [facility] [address] [place] [address] [phone] [facility] Start: 06-13-2017 Ambulatory 06/13/2017 Office Visit Endocrinology Raquel Villa MD [address] [facility] [address] [place] [address] [phone] [facility] Start: 02-02-2017 Influenza vaccination SEQUENTIAL INFLUENZA VACCINE (#1) [facility] Work Phone: Start: 02-17-1994 Hepatitis C screening Hepatitis C Screening [facility] Start: 02-17-1991 HIV screening HIV Screening [facility] Start: 1988 COVID-19 Vaccine (1) COVID-19 Vaccine (1) [facility] Start: 1988 Depression screening using PHQ-9 (Patient Health Questionnaire 9) score [facility] Start: 02-17-1979 History and physical examination, annual for health maintenance Wellness Visit [facility] Start: 1976 COVID-19 Vaccine (#1) COVID-19 Vaccine (#1) [facility] Start: 1976 Prostate specific antigen measurement PSA Level [facility] Start: 1976 Screening for malignant neoplasm of colon [facility] Start: 1976 Tetanus vaccination [facility] End: 04-05-2018 NM Thyroid Uptake And Scan NM Thyroid Uptake And Scan Routine Graves disease 1 Occurrences starting 04/05/2017 until 04/05/2018 [facility] Work Phone: End: 10-12-2019 T4 free mass conc T4, Free Routine Hypothyroidism, unspecified type 1 Occurrences starting 10/11/2018 until 10/12/2019 [facility] Comment on above: 1 Occurrences starting 10/11/2018 until 10/12/2019 End: 10-20-2021 Thyrotropin [Units/volume] in Serum or Plasma TSH Lab Routine Postablative hypothyroidism 1 Occurrences starting 10/20/2020 until 10/20/2021 [facility] Comment on above: 1 Occurrences starting 10/20/2020 until 10/20/2021 End: 12-17-2021 Thyrotropin [Units/volume] in Serum or Plasma TSH Lab Routine Postablative hypothyroidism 1 Occurrences starting 12/17/2020 until 12/17/2021 [facility] Comment on above: 1 Occurrences starting 12/17/2020 until 12/17/2021 End: 12-16-2022 Thyrotropin [Units/volume] in Serum or Plasma TSH Lab Routine Hypothyroidism, unspecified type 1 Occurrences starting 12/16/2021 until 12/16/2022 [facility] Comment on above: 1 Occurrences starting 12/16/2021 until 12/16/2022 End: 03-05-2024 Thyrotropin [Units/volume] in Serum or Plasma TSH Lab Routine Postablative hypothyroidism 1 Occurrences starting 03/05/2023 until 03/05/2024 [facility] Comment on above: 1 Occurrences starting 03/05/2023 until 03/05/2024 End: 10-12-2019 Thyrotropin Qn TSH Routine Hypothyroidism, unspecified type 1 Occurrences starting 10/11/2018 until 10/12/2019 [facility] Comment on above: 1 Occurrences starting 10/11/2018 until 10/12/2019 End: 10-17-2018 Thyroxine (T4) free T4, Free Routine Postablative hypothyroidism 1 Occurrences starting 10/16/2017 until 10/17/2018 [facility] End: 07-21-2018 Thyroxine (T4) free T4, Free Routine Postablative hypothyroidism 1 Occurrences starting 07/20/2017 until 07/21/2018 [facility] Work Phone: End: 04-06-2018 Thyroxine (T4) free T4, Free Routine Graves disease 1 Occurrences starting 04/05/2017 until 04/06/2018 [facility] Work Phone: End: 10-20-2021 Thyroxine (T4) free [Mass/volume] in Serum or Plasma T4, Free Lab Routine Postablative hypothyroidism 1 Occurrences starting 10/20/2020 until 10/20/2021 [facility] Comment on above: 1 Occurrences starting 10/20/2020 until 10/20/2021 End: 12-17-2021 Thyroxine (T4) free [Mass/volume] in Serum or Plasma T4, Free Lab Routine Postablative hypothyroidism 1 Occurrences starting 12/17/2020 until 12/17/2021 [facility] Comment on above: 1 Occurrences starting 12/17/2020 until 12/17/2021 End: 12-16-2022 Thyroxine (T4) free [Mass/volume] in Serum or Plasma T4, Free Lab Routine Hypothyroidism, unspecified type 1 Occurrences starting 12/16/2021 until 12/16/2022 [facility] Work Phone: Comment on above: 1 Occurrences starting 12/16/2021 until 12/16/2022 End: 03-05-2024 Thyroxine (T4) free [Mass/volume] in Serum or Plasma T4, Free Lab Routine Postablative hypothyroidism 1 Occurrences starting 03/05/2023 until 03/05/2024 [facility] Comment on above: 1 Occurrences starting 03/05/2023 until 03/05/2024 End: 03-05-2024 Triiodothyronine (T3) [Mass/volume] in Serum or Plasma T3 Lab Routine Postablative hypothyroidism 1 Occurrences starting 03/05/2023 until 03/05/2024 [facility] Comment on above: 1 Occurrences starting 03/05/2023 until 03/05/2024 End: 10-17-2018 TSH TSH Routine Postablative hypothyroidism 1 Occurrences starting 10/16/2017 until 10/17/2018 [facility] End: 07-21-2018 TSH TSH Routine Postablative hypothyroidism 1 Occurrences starting 07/20/2017 until 07/21/2018 [facility] Work Phone: End: 04-06-2018 TSH TSH Routine Graves disease 1 Occurrences starting 04/05/2017 until 04/06/2018 [facility] Work Phone: Payers Date Payer Category Payer Unknown [employer]/PREF/HMO/PPO xxxxxxxxxxxx 2018-Present xxxxxxxxxxxx [id number] 2018 Unknown [employer]/PREF/HMO/PPO [id number] 2018-Present [id number] 2018 Unknown [employer]/PREF/HMO/PPO [id number] 2018-Present [phone] [address] [place] [address] [id number] 2018 Unknown [id number] 2008 Unknown [id number] 1976 Unknown [id number] 1976 Unknown [id number] 1976 Unknown [id number] 1975 Unknown [id number] 1976 Unknown [id number] 1976 Unknown [id number] 1976 Unknown [id number] 1976 Unknown [id number] 9 1976 Unknown [id number] 9 1976 Unknown [id number] 9 1976 Unknown [id number] 9 1976 Unknown [id number] 9 1976 Unknown [id number] 9 Social History Date Type Detail Facility Start: 10-16-2017 End: 03-05-2023 Tobacco smoking status NHIS Never smoker [facility] Start: 1975 Sex Assigned At Not on file [facility] Work Phone: Start: 10-21-2019 End: 03-05-2023 Tobacco use and exposure Never used [facility] Start: 10-21-2019 End: 04-09-2023 Alcohol intake Current non-drinker of alcohol (finding) [facility] Start: 12-31-2021 End: 01-10-2022 Exposure to SARS-CoV-2 (event) Not sure [facility] Tobacco smoking status No Smokin g Status Entered [facility] Start: 01-10-2022 End: 04-09-2023 Sex Assigned At Male [facility] Tobacco smoking status No Smokin g Status Entered [facility] Start: 01-10-2022 End: 04-09-2023 History of Social function [facility] Start: 11-04-2020 Gender identity Identifies as male gender (finding) [facility] Start: 11-04-2020 Sexual orientation Heterosexual (finding) [facility] Clinical Notes 12-17-2020 to 04-09-2023 Marci Huang AuD - 04/09/2023 9:30 AM Chuckie Pedersen CNP - 03/05/2023 8:03 AM Scotty Evangelista PA-C - 01/10/2022 8:09 AM EDT Note Date & Type Note Facility 04-09-2023 History of Present illness Narrative Images from the original note were not included. [facility] [place] [facility] [address] [address] Name: Payton Galvez : 1975 Date: 04/09/23 History & Purpose of Evaluation: Ilya Galvez was seen today for audiologic evaluation at the request of Patricia Thomson MD. Mr. Galvez's chief complaint was bilateral tinnitus, which he began noticing approximately one year ago. Mr. Galvez does not recall any significant event that occurred prior to the onset of his tinnitus. There are no known aggravating factors of Mr. 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 Please see below for other pertinent case history information as reported by Mr. Galvez. Otologic Symptoms R L Noise Exposure Y N Medical Y N Hearing Loss [] [] Occupational [x] [] Hypertension [] [x] Tinnitus [x] [x] Recreational [x] [] Diabetes [] [x] Otalgia [] [] [] [] Hypercholesterolemia [] [x] Otorrhea [] [] Has not always used hearing protection, now does Heart Disease [] [x] Aural Fullness [] [] Family History-grandfather presbycusis [x] [] Stroke [] [x] Meniere s Disease [] [] Cancer [] [x] Y N Sp./Lang. Skills Ear Surgery R L Vertigo [] [x] Appropriate [x] [] PE Tubes [] [] Dizziness [] [x] In Therapy [] [x] Mastoidectomy [] [] Imbalance [] [x] Social Acoustic Neuroma [] [] Vestibular Rehab [] [x] Depression [] [x] Tympanoplasty [] [] Other: Results: Otoscopy: Performed by Dr. Thomson prior to testing. Puretone Air & Bone Conduction Audiometry: Pure tone audiometry revealed a bilateral sensorineural hearing loss, mild in the low frequencies, rising within normal limits in the mid-frequencies, and sloping to a moderate loss in the high frequencies. Speech Audiometry: Speech recognition thresholds were in good agreement with puretone averages. Word recognition was good (86% in the right ear and 88% in the left ear) when assessed at quiet conversational loudness levels using recorded male voice. Immittance Audiometry: Tympanometry revealed normal ear canal volume, normal static compliance, and normal middle ear resting pressure (Jerger type A), bilaterally. Impression: Middle ear testing was consistent with a well-ventilated middle ear system, bilaterally. Puretone audiometry revealed a moderate high frequency sensorineural hearing loss, bilaterally. Recommendations: Follow up with Dr. Thomson. Further testing and/or re-evaluation at Dr. Thomson' discretion. Re-evaluate in one year, or sooner if concerns arise, to monitor hearing. Use of hearing protection is recommended when in high levels of noise. The above was explained to Mr. Galvez and he expressed understanding. Electronically Signed by: Cody Centeno, [facility] 04/09/23 9:57 AM Audiogram: documented in this encounter [facility] 03-05-2023 History of Present illness Narrative Images from the original note were not included. Patient ID: Payton Galvez is a 48 y.o. male 1975 Subjective: HPI: Payton aGlvez is a 48 y.o. male here for follow up of Graves' disease status post 131 radioactive iodine. He was treated with methimazole at that time, and then apparently went into remission. He again developed symptoms of hyperthyroidism in 2015, and was diagnosed with Graves' disease when he presented with atrial fibrillation. At that time he was also drinking a lot of caffeine. He had an I-123 thyroid uptake and scan on 01/24/16 which revealed homogenous hyperthyroid iodine uptake, consistent with Graves' disease. On 01/31/16 he was treated with 13.09 mCi of I-131. His thyroid levels improved, but his hyperthyroidism did not resolve completely and he presented for further evaluation. He had persistent Graves' disease. He had a second treatment of I-131 radioactive iodine, receiving 29 mCi on 05/07/17. He then developed hypothyroidism and is on levothyroxine 150 mcg/day. Patient was last seen one year ago, 01/23 at which time he was euthyroid. He remains euthyroid at this point. He is concerned that his levothyroxine is causing tinnitus symptoms. Otherwise asymptomatic of hyper or hypothyroidism at this time. No other changes to his baseline health. 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 Review of Systems: Review of Systems Constitutional: Positive for fatigue. Negative for activity change, appetite change and unexpected weight change. HENT: Positive for tinnitus (thought to be worse with thyroid medication.). Negative for trouble swallowing. Eyes: Negative for visual disturbance. Respiratory: Negative for shortness of breath. Cardiovascular: Negative for chest pain and palpitations. Gastrointestinal: Negative for abdominal pain, constipation and diarrhea. Endocrine: Negative for cold intolerance and heat intolerance. Musculoskeletal: Negative for neck pain. Neurological: Negative for tremors. The following portions of the patient's history were reviewed and updated as appropriate: allergies, current medications, past family history, past medical history, past social history, past surgical history and problem list. Objective: Laboratory Review: Lab Results Component Value Date TSH 3.29 03/01/2023 No results for input(s): FREE T4 in the last 28993 hours. No results found for: WBC , HGB , HCT , MCV , PLT Date: 03/01/23 TSH: 3.29; Free T4: 1.0 06/12/22: TSH: 4.19; Free T4: 1.05 12/26/2021 TSH: 6.98 ; FreeT4: 0.92 10/15/19 TSH: 1.140 ; FreeT4: 1.54 Assessment: Dx: No diagnosis found. Patient follows up for further management of post-ablative hypothyroidism . Signs and symptoms reviewed with patient. Patient reports weight is stable. Most recent labs reviewed showing subclinical hypothyroidism on current dose of levothyroxine 150 mcg daily with only a 1/2 tablet on Sundays (approx 139 mcg daily). Full weight-based dose would be approximately 168 mcg daily. This diagnosis was discussed and reviewed with the patient including the advantages of drug therapy, radioactive iodine and surgery. Plan: Dx: No diagnosis found. 1. Labs: TSH and Free T4 in 2-3 months and again before annual follow-up. 2. Stop levothyroxine Start PIT [place] thyroid in equivalent dose 90 mg daily. 3. The risks and benefits of my recommendations, as well as other treatment options were discussed with the patient today. Questions were answered. 4. Follow up: 6 months and as needed. Referral to Dr. Thomson, ENT. Evaluation of Tinnitus. Orders Placed This Encounter Procedures T4, Free TSH T3 T4, Free TSH T3 Ambulatory referral to ENT Electronically Signed by: Chuckie Lui CNP 03/05/23 8:15 AM ' documented in this encounter [facility] 01-10-2022 History of Present illness Narrative Images from the original note were not included. Patient ID: Payton Galvez is a 46 y.o. male 1975 Subjective: HPI: Payton Galvez is a 46 y.o. male here for follow up of Graves' disease status post 131 radioactive iodine. He was treated with methimazole at that time, and then apparently went into remission. He again developed symptoms of hyperthyroidism in 2015, and was diagnosed with Graves' disease when he presented with atrial fibrillation. At that time he was also drinking a lot of caffeine. He had an I-123 thyroid uptake and scan on 01/24/16 which revealed homogenous hyperthyroid iodine uptake, consistent with Graves' disease. On 01/31/16 he was treated with 13.09 mCi of I-131. His thyroid levels improved, but his hyperthyroidism did not resolve completely and he presented for further evaluation. He had persistent Graves' disease. He had a second treatment of I-131 radioactive iodine, receiving 29 mCi on 05/07/17. He then developed hypothyroidism and is on levothyroxine 150 mcg/day. Patient was last seen one year ago, 12/2020 at which time he was euthyroid. Most recent TFTs seen below show a suboptimal TSH was 6.98 and a free T4 of 0.92 on current dose of levothyroxine 150mcg daily with only a 1/2 tablet on Sundays. Patient reports consistent fatigue. Otherwise asymptomatic of hyper or hypothyroidism at this time. No other changes to his baseline health. Review of Systems: Review of Systems Constitutional: Positive for fatigue. Negative for activity change, appetite change and unexpected weight change. HENT: Negative for trouble swallowing. Eyes: Negative for visual disturbance. Respiratory: Negative for shortness of breath. Cardiovascular: Negative for chest pain and palpitations. Gastrointestinal: Negative for abdominal pain, constipation and diarrhea. Endocrine: Negative for cold intolerance and heat intolerance. Musculoskeletal: Negative for neck pain. Neurological: Negative for tremors. The following portions of the patient's history were reviewed and updated as appropriate: allergies, current medications, past family history, past medical history, past social history, past surgical history and problem list. Objective: Laboratory Review: Lab Results Component Value Date TSH 6.98 12/26/2021 No results for input(s): FREE T4 in the last 11423 hours. No results found for: WBC, HGB, HCT, MCV, PLT Date: 12/26/2021 TSH: 6.98 ; FreeT4: 0.92 10/15/19 TSH: 1.140 ; FreeT4: 1.54 Assessment: Dx: 1. Postablative hypothyroidism T4, Free TSH T4, Free TSH 2. Hypothyroidism, unspecified type Patient follows up for further management of post-ablative hypothyroidism . Signs and symptoms reviewed with patient. Patient reports weight is stable. Most recent labs reviewed showing subclinical hypothyroidism on current dose of levothyroxine 150 mcg daily with only a 1/2 tablet on Sundays (approx 139 mcg daily). Full weight-based dose would be approximately 168 mcg daily. This diagnosis was discussed and reviewed with the patient including the advantages of drug therapy, radioactive iodine and surgery. Plan: Dx: 1. Postablative hypothyroidism T4, Free TSH T4, Free TSH 2. Hypothyroidism, unspecified type 1. Labs: TSH and Free T4 in 2-3 months and again before annual follow-up. 2. Increase levothyroxine to 150 mcg daily 3. The risks and benefits of my recommendations, as well as other treatment options were discussed with the patient today. Questions were answered. 4. Follow up: 1 year and as needed. Orders Placed This Encounter Procedures T4, Free TSH T4, Free TSH Electronically signed by Kathrine Evangelista PA-C 01/10/22 8:28 AM ' documented in this encounter [facility] 12-26-2021 Evaluation + Plan note Diagnostic Tests PendingFree T4 12/26/21Thyroid Stimulating Hormone 12/26/21 [facility] 12-17-2020 History of Present illness Narrative Images from the original note were not included. Patient ID: Payton Galvez is a 45 y.o. male 1975 Subjective: HPI: Payton Galvez is a 45 y.o. male here for follow up of Graves' disease status post 131 radioactive iodine. He was treated with methimazole at that time, and then apparently went into remission. He again developed symptoms of hyperthyroidism in 2016, and was diagnosed with Graves' disease when he presented with atrial fibrillation. At that time he was also drinking a lot of caffeine. He had an I-123 thyroid uptake and scan on 01/24/16 which revealed homogenous hyperthyroid iodine uptake, consistent with Graves' disease. On 01/31/16 he was treated with 13.09 mCi of I-131. His thyroid levels improved, but his hyperthyroidism did not resolve completely and he presented for further evaluation. He had persistent Graves' disease. He had a second treatment of I-131 radioactive iodine, receiving 29 mCi on 05/07/17. He then developed hypothyroidism and is on levothyroxine 150 mcg/day. Patient was last seen via telehealth appointment in 10/2019 at which time he was euthyroid. Most recent TFTs seen below show a suboptimal TSH was 6.79 and a free T4 of 1.00. Patient reports consistent fatigue. Otherwise asymptomatic of hyper or hypothyroidism at this time. No other changes to his baseline health. Review of Systems: Review of Systems Constitutional: Positive for fatigue. Negative for activity change, appetite change and unexpected weight change. HENT: Negative for trouble swallowing. Eyes: Negative for visual disturbance. Respiratory: Negative for shortness of breath. Cardiovascular: Negative for chest pain and palpitations. Gastrointestinal: Negative for abdominal pain, constipation and diarrhea. Endocrine: Negative for cold intolerance and heat intolerance. Musculoskeletal: Negative for neck pain. Neurological: Negative for tremors. The following portions of the patient's history were reviewed and updated as appropriate: allergies, current medications, past family history, past medical history, past social history, past surgical history and problem list. Objective: Laboratory Review: Lab Results Component Value Date TSH 6.79 11/03/2020 No results for input(s): FREE T4 in the last 12705 hours. No results found for: WBC, HGB, HCT, MCV, PLT Date: 10/15/19 TSH: 1.140 ; FreeT4: 1.54 Assessment: Dx: 1. Postablative hypothyroidism TSH T4, Free TSH T4, Free 2. Hypothyroidism, unspecified type levothyroxine (SYNTHROID, LEVOTHROID) 150 MCG tablet Patient follows up for further management of post-ablative hypothyroidism. Signs and symptoms reviewed with patient. Patient reports weight is stable. Most recent labs reviewed showing subclinical hypothyroidism on current dose of levothyroxine 150 mcg daily. Full weight-based dose would be approximately 162 mcg daily. This diagnosis was discussed and reviewed with the patient including the advantages of drug therapy, radioactive iodine and surgery. Plan: Dx: 1. Postablative hypothyroidism TSH T4, Free TSH T4, Free 2. Hypothyroidism, unspecified type levothyroxine (SYNTHROID, LEVOTHROID) 150 MCG tablet 1. Labs: TSH and Free T4 in 2-3 months and again before annual follow-up. 2. Increase levothyroxine to 150 mcg daily with an extra 1/2 tablet every Sunday. 3. The risks and benefits of my recommendations, as well as other treatment options were discussed with the patient today. Questions were answered. 4. Follow up: 1 year and as needed. Orders Placed This Encounter Procedures TSH T4, Free TSH T4, Free Electronically signed by: William Crespo PA-C, [facility] 12/17/20 10:00 AM ' documented in this encounter [facility] Evaluation note Diagnosis Postablative hypothyroidism- Primary Other postablative hypothyroidism [facility] Diagnosis Postablative hypothyroidism- Primary Other postablative hypothyroidism [facility], unspecified [facility] Hyp[facility], unspecified type- Primary [facility] Diagnosis [facility], unspecified type [facility] Diagnosis Postablative hypothyroidism- Primary Other postablative hypothyroidism Hypothyroidism, unspecified type [facility] Diagnosis Hypothyroidism, unspecified type [facility] Diagnosis Postablative hypothyroidism- Primary Other postablative hypothyroidism Tinnitus, unspecified laterality [facility] Diagnosis Sensorineural hearing loss, bilateral- Primary documented in this encounter [place] [facility] Narrative No data available for this section [facility] No data available for this section [facility] No data available for this section [facility] Assessments Diagnosis Postablative hypothyroidism - Primary Other postablative hypothyroidism Graves disease Toxic diffuse goiter without mention of thyrotoxic crisis or storm Diagnosis Postablative hypothyroidism - Primary Other postablative hypothyroidism Diagnosis Graves disease Toxic diffuse goiter without mention of thyrotoxic crisis or storm Diagnosis Hypothyroidism, unspecified type Summary Purpose Family History No Family History Records FoundNo Family History Records FoundNo Family History Records FoundNo Family History Records FoundNo Family History Records Found Advance Directives No Advanced Directives Records FoundDocuments on File Type Date 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 male Subjective: Patient is a 42-year-old male with history of Graves' disease and post ablative hypothyroidism. He apparently was initially diagnosed in 2007 when he experienced a 45 pound weight loss and palpitations. He was treated with methimazole at that time, and then apparently went into remission. He again d eveloped symptoms of hyperthyroidism in 2015, and was diagnosed with Graves' disease when he presented with atrial fibrillation. At that time he was also drinking a lot of caffeine. He had an I-123 thyroid uptake and scan on 01/24/16 which revealed homogenous hyperthyroid iodine uptake, consistent with Graves' disease. On 01/31/16 he was treated with 13.09 mCi of I-131. His thyroid levels improved,but his hyperthyroidism did not resolve completely and he presented for further evaluation. He had persistent Graves' disease. He had a second treatment of I-131 radioactive iodine, receiving 29 mCi on 05/07/17. He then developed hypothyroidism and is on levothyroxine 150 mcg/day. At his last appointment, Cytomel 5 mcg daily was added to his regimen; however, he did not note improvement in his symptoms, so discontinued Cytomel. He generally feels well other than having fatigue. He has difficulty sleeping. Apparently he is able to fall asleep, but wakes up in the middle the night, and has difficulty falling back to sleep. Hehas tried Ambien in the past but did not feel well with it. 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 He does not drink much coffee or sodas. Review of Systems: Review of Systems Constitutional: Positive for fatigue. Negative for appetite change and unexpected weight change. HENT: Negative for trouble swallowing and voice change. Eyes: Negative for pain, redness and visual disturbance. Respiratory: Negative for shortness of breath. Cardiovascular: Negative for chest pain and palpitations. Gastrointestinal: Negative for constipation and diarrhea. Endocrine: Negative for cold intolerance and heat intolerance. Musculoskeletal: Negative for neck pain. Neurological: Negative for tremors. Psychiatric/Behavioral: Positive for sleep disturbance. The following portions of the patient's history were reviewed and updated as appropriate: allergies, current medications, past family history, past medical history, past social history, past surgicalhistory and problem list. No Known Allergies Current Outpatient Medications Medication Sig Dispense Refill levothyroxine (SYNTHROID, LEVOTHROID) 150 MCG tablet Take 1 (one) tablet (150 mcg total) by mouth daily . 90 tablet 3 omeprazole (PRILOSEC) 40 MG capsule Take 1 (one) capsule (40 mg total) by mouth daily . 30 capsule 11 ranitidine (ZANTAC) 150 MG capsule Take 1 (one) capsule (150 mg total) by mouth 2 (two) times a day. 60 capsule 11 No current facility-administered medications for this visit. Objective: BP 120/79 Pulse 65 Ht 5' 10.5 Wt 105.2 kg (232 lb) BMI 32.82 kg/m Wt Readings from Last 3 Encounters: 10/11/18 105.2 kg (232 lb) 04/23/18 105.2 kg (232 lb) 10/16/17 101.6 kg (224 lb) Physical Exam: Physical Exam Constitutional: He is oriented to person, place, and time. He appears well- developed and well-nourished. HENT: Head: Normocephalic and atraumatic. Mouth/Throat: No oropharyngeal exudate. Eyes: Pupils are equal, round, and reactive to light. EOM are normal. No scleral icterus. Neck: No thyromegaly present. Cardiovascular: Normal rate, regular rhythm and normal heart sounds. No murmur heard. Pulmonary/Chest: Effort normal and breath sounds normal. No respiratory distress. He has no wheezes. He has no rales. Musculoskeletal: He exhibits no edema. Lymphadenopathy: He has no cervical adenopathy. Neurological: He is alert and oriented to person, place, and time. No cranial nerve deficit. Skin: Skin is warm and dry. No erythema. Psychiatric: He has a normal mood and affect. His behavior is normal. Judgment and thought content normal. Lab review: 10/07/2018 TSH 1.280, FT4--1.44 04/16/18: TSH: 2.170; Free T4: 1.34 02/22/18: TSH: 4.270; Free T4: 1.34 12/17/17: TSH: 9.350; Free T4: 1.20 10/13/17 TSH: 3.570; Free T4: 1.34 07/14/17: TSH: 14.140; Free T4: 0.50 06/23/17: TSH: 4.830; Free T4: 0.71 03/22/17 TSH<0.006, FT4--1.69, FT3--4.6 12/23/16 TSH<0.006, FT4--1.97 12/03/15 FT4--5.92, FT3--20.4 (2.0-4.4) 11/26/15 TSH 0.06, FT4--4.82 Radiology review: 01/24/16 I-123 uptake and scan 2 hour uptake 59% (1-9%) 24 hour uptake 100% (10-30%) Uptake values are hyperthyroid. There is uniform uptake of activity by the right and left thyroid lobes. Thyroid gland appears to be within the upper limits of normal size. No focal hot or cold nodule is noted. Comparison to 01/23/08 scan with apparently no significant change in the image noted 09/17/14 thyroid ultrasound Thyroid gland is diffusely enlarged. Right lobe 4.4 x 2.6 x 2.9 cm Left lobe 5.5 x 2.2 x 2.4 cm No discrete nodule is seen. Assessment: Dx: Problem List Items Addressed This Visit None Visit Diagnoses Hypothyroidism, unspecified type Relevant Medications levothyroxine (SYNTHROID, LEVOTHROID) 150 MCG tablet Other Relevant Orders T4, Free TSH T4, Free TSH Graves' disease: Patient with Graves' disease treated with I-131 01/17, due to persistent hyperthyroidism patient underwent repeat I-131 radioactive iodine, receiving 29 mCi on 05/07/17. Patient was restarted on methimazole 10 mg daily. Repeat labs on 06/21 revealed TSH of 4.830; Free T4: 0.71 and methimazole discontinued. Repeat labs on 07/14/17: TSH: 14.140; Free T4: 0.50 which lead to starting synthroid 125 mcg daily. Patient's dose increased in October 2017 and once again in December 2017 to current dose of levothyroxine 150 mcg daily. He did not notice any improvement with brief trial of Cytomel 5 mcg daily in addition to his levothyroxine. Patient reports fatigue, and continued difficulty sleeping. Labs reviewed from 10/07/2018 TSH 1.280, FT4--1.44 Plan: SNOMED CT(R) 1. Hypothyroidism, unspecified type HYPOTHYROIDISM levothyroxine (SYNTHROID, LEVOTHROID) 150 MCG tablet T4, Free TSH T4, Free TSH Continue levothyroxine 150 mcg daily. Repeat labs in 6 months and prior to follow up in 1 year. Return in about 1 year (around 10/12/2019). Blake THAYER documented in this encounter Reason for Referral Specialty Diagnoses / Procedures Referred By Jeff parekh Referred To Contact Otolaryngology Diagnoses Postablative hypothyroidism Chuckie Lui, [employer] [address] [place] [address] Patricia Thomson MD [address] [address] Referral ID Status Reason Start Date Expiration Date V isits Requested Visits Authorized [id number] Authorized 03/05/2023 03/04/2024 1 1 Additional Source Comments (unrecognized sect ion and content) No Status Records FoundNo Status Records FoundNo Status Records FoundNo Status Records FoundNo Status Records Found INFORMATION SOURCE (unrecogn ized section and content) DATE CREATED AUTHOR 11/27/2017 [facility] DATE CREATED AUTHOR AUTHOR'S ORGANIZ ATION 11/27/2017 [facility] DATE CREATED AUTHOR AUTHOR'S ORGANIZ ATION 03/07/2023 [facility] DATE CREATED AUTHOR AUTHOR'S ORGANIZ ATION 04/09/2023 [facility] DATE CREATED AUTHOR AUTHOR'S ORGANIZ ATION 01/18/2024 [facility] Reason for Visit (unrecogniz ed section and content) Reason Comments Thyroid Problem Reason Comments Medication Refill Reason Comments Hypothyroidism Reason Comments Hypothyroidism Care Teams (unrecognized sec tion and content) Investigation Lieutenant Relationship Specialty Start Date End Date Pedro Elmore DO [address] [place] [phone] PCP - General Family Medicine 03/29/17 Investigation Lieutenant Relationship Specialty Start Date End Date Pedro Elmore DO [address] [place] [phone] PCP - General Family Medicine 03/29/17 Investigation Lieutenant Relationship Specialty Start Date End Date Pedro Elmore DO [address] [place] [phone] PCP - General Family Medicine 03/29/17 Investigation Lieutenant Relationship Specialty Start Date End Date Pedro Elmore DO [address] [place] [phone] PCP - General Family Medicine 03/29/17 Investigation Lieutenant Relationship Specialty Start Date End Date Pedro Elmore DO [address] [place] [phone] PCP - General Family Medicine 03/29/17 Investigation Lieutenant Relationship Specialty Start Date End Date Pedro Elmore DO [address] [place] [phone] PCP - General Family Medicine 03/29/17 Investigation Lieutenant Relationship Specialty Start Date End Date Pedro Elmore DO [address] [place] [address] PCP - General Family Medicine 03/29/17 William Crespo PA-C [facility] [place] [address] PCP - [facility] Provider - [employer] 05/04/23 06/03/50 FOR RECORDS PERTAINING TO PATIENTS WHO ARE OR HAVE BEEN ENROLLED IN A CHEMICAL DEPENDENCY/SUBSTANCEABUSE PROGRAM, SOME INFORMATION MAY BE OMITTED. This clinical summary was aggregated from multiple sources. Caution should be exercised in using it in the provision of clinical care. This summary normalizes information from multiple sources, and as a consequence, information in this document may materially change the coding, format and clinical context of patient data. In addition, data may be omitted in some cases. CLINICAL DECISIONS SHOULD BE BASED ON THE PRIMARY CLINICAL RECORDS. [facility] [employer] provides no warranty or guarantee of the accuracy or completeness of information in this document.
[2024-01-29] MEDS: LACTATED RINGER'S SOLUTION 1,000 ML 50 ML IV (10:17)
--- NOTE | 2024-01-29 11:20 | OP_ITS ---
OP Note ? OPERATION DATE: ??01/29/2024 ? PRIMARY CARE PHYSICIAN:? Ari Pfeiffer M.D. ? SURGEON:? Zeny Jovel M.D. ? PREOPERATIVE DIAGNOSIS:? Bilateral inferior turbinate hypertrophy. ? POSTOPERATIVE DIAGNOSIS:? Bilateral inferior turbinate hypertrophy. ? PROCEDURE:? Bilateral inferior turbinate submucosal resection. ? ANESTHESIA:? General endotracheal. ? COMPLICATIONS:? None. ? FINDINGS:? Bilateral inferior turbinate hypertrophy. ? INDICATIONS:? This 48-year-old man presented with bilateral nasal obstruction secondary to inferior turbinate hypertrophy, unresponsive to medical management. ?PROCEDURE:? Patient identified in the holding area and taken back to the OR where he was placed in a supine position.? After induction of general endotracheal anesthesia, the table was turned and the head elevated 20 degrees, and the face draped in a sterile fashion.? Afrin soaked pledgets were placed in each side of the nose and, after waiting adequate time for decongestion, the nose was copiously irrigated.? Then lidocaine 1% with 1:100,000 epinephrine was injected into each inferior turbinate.? After waiting adequate time for hemostasis, the right nose was approached with the nasal speculum.? A stab incision made in the anterior portion of the inferior turbinate, and the caudal elevator used to create a tunnel along the medial surface of the bone.? Then a 2.0 mm microdebrider was used to exenterate the submucosal tissues of the turbinate and the turbinate was then outfractured with a long nasal speculum.? Attention was then turned to the left nose and the same procedure performed.? The patient was then awakened and taken to the recovery room in good condition.?? VANNESAD
[2024-01-29] MEDS: OXYMETAZOLINE HCL 0.05% NASAL SPRAY 30 SPRAY NS (11:24)
[2024-01-29] MEDS: LACTATED RINGER'S SOLUTION 1,000 ML 125 ML IV (11:44)
[2024-01-29] MEDS: LIDOCAINE HCL 1%-EPINEPHRINE 1:100,000 20 ML MDV INJ (11:59)
[2024-01-29] MEDS: HYDROMORPHONE HCL 0.5 MG/0.5 ML SYRINGE IV ×3 (12:08→12:23)
--- NOTE | 2024-01-29 12:33 | PC.NURSE ---
Cottonoids in bilateral nares; moist cough noted and spitting up small amount blood
--- NOTE | 2024-01-29 12:35 | PC.NURSE ---
Cottonoids removed by Dr. Jovel; small amount nasal drainage noted ; 4x4 dressing placed under nares and ENT ice pack across bridge of nose
--- NOTE | 2024-01-29 12:39 | PC.NURSE ---
Dressing at nares dry and intact; infrequent cough noted
--- NOTE | 2024-01-29 12:42 | PC.NURSE ---
Medicated with Dilaudid IV for nasal pain; dressing dry and intact to nares
--- NOTE | 2024-01-29 12:46 | PC.NURSE ---
Medicated as ordered for continued nasal pain; dressing to nares remains dry
--- NOTE | 2024-01-29 12:49 | PC.NURSE ---
Medicated with Dilaudid IV as ordered for continued nasal pain; dressing to nares dry; ice pack removed; infrequent dry cough noted
--- NOTE | 2024-01-29 12:52 | PC.NURSE ---
Dressing to nares dry
--- NOTE | 2024-01-29 12:54 | PC.NURSE ---
Nasal dressing dry
== END 2024-01-29 14:00 | disposition home or self-care (01) ==
PROVIDERS: PCP Family Medicine; Visit Provider Otolaryngology
PROC: (CPT 160; principal; 2024-01-29 11:30)
DX: J35.3 Hypertrophy of tonsils with hypertrophy of adenoids (principal); K21.9 Gastro-esophageal reflux disease without esophagitis; E03.9 Hypothyroidism, unspecified
CPT/HCPCS: 30140; 36415; J1100; J1170; J2250; J2405; J2704; J3010